=== PATIENT | female | born 1965 | race Caucasian/White ===

== ENCOUNTER 2022-10-15 15:55 | Emergency (ER) | payer OTHER, BC ==
[2022-10-15] MEDS ORDERED: LORazepam 2 MG/ML SYR.(CARPUJECT) ONE (17:44)
== END 2022-10-15 18:09 | disposition home or self-care (01) ==
LOC: ERS 15:55
DX: S80.12XA Contusion of left lower leg, initial encounter (principal); E03.9 Hypothyroidism, unspecified; E78.5 Hyperlipidemia, unspecified; V49.60XA Unspecified car occupant injured in collision with unspecified motor vehicles in traffic accident, initial encounter; Y92.410 Unspecified street and highway as the place of occurrence of the external cause
CPT/HCPCS: 70450; 71045; 72170; 96372; J2060